=== PATIENT | female | born 1980 | race Caucasian/White ===

== ENCOUNTER 2022-09-04 15:45 | Outpatient (REF) | payer OTHER, MEDICAID, SELFPAY ==
--- NOTE | ~2022-09-04 | XR_ITS ---
EXAMINATION: XR SHOULDER, RIGHT CLINICAL INFORMATION: Reason for Exam M25.519 - Pain in unspecified shoulder COMPARISON: None TECHNIQUE: Three views of the shoulder. FINDINGS: No acute fracture or dislocation. Surgical anchors in the right humeral head. Mild degenerative changes of the glenohumeral joint with minimal degenerative spurring. Postsurgical changes of distal clavicular resection. Soft tissues are unremarkable. XR/XR shoulder RT min 2V IMPRESSION: 1. Mild degenerative changes of the glenohumeral joint. 2. Postsurgical changes of distal clavicular resection with surgical anchors in the right humeral head.
== END 2022-09-04 15:46 | disposition home or self-care (01) ==
LOC: HO.HOSX 15:45
PROVIDERS: Visit Provider Physician Assistant
DX: M25.511 Pain in right shoulder (principal)
CPT/HCPCS: 73030

== ENCOUNTER → 2022-09-05 07:49 | Outpatient (BNVA) | payer OTHER, MEDICAID, SELFPAY | PROVIDERS: PCP Family Medicine; Visit Provider Physician Assistant | DX: M25.519 Pain in unspecified shoulder (principal) ==

== ENCOUNTER 2022-10-21 09:50 | Outpatient (AMB) | payer OTHER, MEDICAID, SELFPAY ==
--- NOTE | 2022-10-21 10:00 | A.OFFVIS_ITS ---
Intake Vital Signs 10/21/22 10:07 Height 5 ft 2 in Weight 160 lb BMI 29.3 Intake Visit Reasons: Pre-Op RT SHLD , [email or web address] 10/06/22DR Allergies cephalexin [From Keflex] Allergy (Intermediate, Verified 10/21/22 10:04) Hives Penicillins Allergy (Intermediate, Verified 10/21/22 10:04) Hives Medication List - Last Reconciled 10/21/22 by Jacques Garcia MD albuterol sulfate 90 mcg/actuation 0 mcg inhalation atorvastatin 40 mg PO DAILY estradiol 1 mg PO DAILY norethindrone (contraceptive) 0.35 mg PO DAILY oxycodone 5 - 10 mg (1 - 2 x 5 mg) PO Q4H PRN oxycodone-acetaminophen 5-325 mg (Percocet) 1 tab PO .QD 12 days sertraline 0 mg PO HPI Pre-Op RT SHLD , [email or web address].[email or web address] 10/06/22DR HPI Details Ms. Meier presents with complaints of progressively worsening right shoulder pain and stiffness. She describes her pain as sharp and severe in nature, 01/06. Her pain has gotten worse over the last year in spite of continued non operative treatments. She has also undergone right shoulder s urgery in the past. She got temporary relief from that procedure. She denies any fevers or chills. She has done physical therapy for 12 weeks over the last 6 months which aggravated her pain. She has also tried Tylenol and anti- inflammatory medicines as well as oxycodone which gave her minimal relief. She has had multiple injections. The most recent injection gave her only temporary relief. The patient has difficulty lifting her right hand above shoulder height. [facility] Medical History History of high cholesterol Social History Alcohol intake: former Patient Tobacco Use Status: Former Tobacco user Current occupational status: unemployed Current occupation: right hand dominant Physical Exam Vital Signs: BMI result Body Mass Index 29.3 Const Other: Well-nourished well-developed very friendly female awake alert and oriented x3 in no acute distress Lungs clear to auscultation bilaterally with symmetric expansion Cardiovascular exam regular rate and rhythm Abdominal exam is soft nontender nondistended Extrem Other: Bilateral upper extremity examination shows good capillary refill, no skin lesions noted, normal sensation light touch Right shoulder examination shows decreased active and passive range of motion when compared to her left shoulder, 4+ out of 5 strength with supraspinatus testing, positive impingement signs, tenderness over her acromioclavicular joint, no instability Results Reviewed Results Reviewed: MRI of the patient's right shoulder show severe acromioclavicular joint narrowing, type 2 acromion, signal change within the supraspinatus tendon most likely due to adhesive capsulitis versus a small rotator cuff tear Assessment & Plan Assessment & Plan (1) Impingement of right shoulder: Code(s): M25.811 - Other specified joint disorders, right shoulder Plan Ms. Meier presents with progressively worsening right shoulder pain due to impingement syndrome, acromioclavicular joint arthritis, possible adhesive capsulitis as well as possible rotator cuff tearing. I had a lengthy discussion with the patient regarding the treatment options. At this point she has failed continued non operative treatments. The risks and benefits of right shoulder surgery were discussed at length with the patient. The patient wishes to proceed with surgery. Surgery will most likely involve a right shoulder diagnostic arthroscopy with distal clavicle excision, acromioplasty, possible anterior capsular with manipulation under anesthesia as well as possible rotator cuff repair should a full-thickness tear be found at the time of her surgery. Because the patient's symptoms are severe and intractable we will schedule her surgery for as soon as possible. Coronavirus precautions will be taken. The patient was given a prescription for oxycodone at her preoperative appointment. I will see her back 2 weeks following her surgery for her 1st postoperative appointment. The patient will follow-up as instructed. Feel free to call me at any time should questions regarding her orthopedic management arise. I spent 25 minutes in reviewing the patient's records and imaging studies, seeing the patient and documenting in the medical record. Medications: New oxycodone Partial Fill upon patient request. 5 - 10 mg (1 - 2 x 5 mg) PO Q4H PRN 50 caps 0RF pain Coding Level of Care Code Est Pt Level 2 (46334) Diagnoses Impingement of right shoulder M25.811
[2022-10-21 10:07] VITALS: BMI 29.3
== END 2022-10-21 15:01 | disposition home or self-care (01) ==
PROVIDERS: PCP Family Medicine; Visit Provider Orthopaedic Surgery
DX: M25.811 Other specified joint disorders, right shoulder (principal)
CPT/HCPCS: 99212

== ENCOUNTER → 2022-10-21 09:50 | Outpatient (BNVA) | payer OTHER, MEDICAID, SELFPAY | PROVIDERS: PCP Family Medicine; Visit Provider Orthopaedic Surgery ==

== ENCOUNTER 2022-10-24 05:46 | Day surgery (SDC) | payer OTHER, MEDICAID, SELFPAY ==
[2022-10-21 14:16] VITALS: BMI 28.3
--- NOTE | 2022-10-23 11:01 | HO.ANESPROP2 ---
Documented by User: Yani Garduno NP 10/23/22 11:02 HPI - Anesthesia Eval Consult details Narrative: 42yo F for Right Shoulder Arthroscopy with distal clavicle excision, with acromioplasty ,poss rotator cuff repair, PRN opioids PMFSH Active Problems Active Problems: All Active Problems (Updated 10/21/22 @ 14:14 by Cindy Nguyen RN) Right rotator cuff tear (Acute) Impingement of right shoulder (Acute) Past Medical History Medical History Anxiety Asthma Depression GERD (gastroesophageal reflux disease) History of high cholesterol Smoker Surgical History Surgical History (Updated 10/21/22 @ 14:14 by Cindy Nguyen, RN) History of shoulder surgery Social History Social History (Updated 10/21/22 @ 14:16 by Cindy Nguyen RN) Are you a primary disabilities caregiver to a significant other at home: No Do you presently have visiting nurse or other home services: No Alcohol intake: former Patient Tobacco Use Status: Current everyday Tobacco user Tobacco use type: Cigarette Cigarettes Per Day: 5 Years Smoked: 15 Use of substances other than those prescribed or required for medical reasons: No Have you been hit, kicked, punched, or otherwise hurt by someone within the past year? If so, by whom?: No Are you DNR?: No Advance Directives: No Advance Directives Information Provided: Yes Advance Directives on File: No Recently lost weight without trying: No Patient : No FDLMP: irregular : No Poor oral hygiene: No Current occupational status: unemployed Current occupation: right hand dominant Meds Allergies Allergy/AdvReac Type Severity Reaction Status Date / Time cephalexin [From Keflex] Allergy Intermediate Hives Verified 10/21/22 10:04 Penicillins Allergy Intermediate Hives Verified 10/21/22 10:04 Home Medications Medication Instructions Recorded Confirmed Last Taken Type albuterol sulfate 90 mcg/actuation 2 puff inhalation Q4-6H PRN 09/05/22 10/21/22 Unknown History aerosol inhaler Shortness Of Breath Or Wheezing atorvastatin 40 mg tablet 40 mg PO BEDTIME 09/05/22 10/21/22 Unknown History norethindrone (contraceptive) 0.35 0.35 mg PO BEDTIME 09/05/22 10/21/22 Unknown History mg tablet estradiol 1 mg tablet 1 mg PO BEDTIME 10/21/22 10/21/22 Unknown History omeprazole 10 mg capsule,delayed 10 mg PO DAILY PRN Gastric Reflux 10/21/22 10/21/22 Unknown History release oxycodone 5 mg tablet 5 mg PO DAILY PRN pain 10/21/22 10/21/22 Unknown History sertraline 50 mg tablet 75 mg PO BEDTIME 10/21/22 10/21/22 Unknown History Exam Exam Date and Time: October 23, 2022 1101 Height,Weight and Vital Signs: Height 5 ft 2 in Weight 70.307 kg Assessment and Plan Assessment Anesthesia Assessment: Chart Reviewed Documented by User: Jimbo Redd MD 10/24/22 07:17 [facility] Past Medical History Medical History Anxiety Asthma Depression GERD (gastroesophageal reflux disease) History of high cholesterol Smoker Family History Family history of problems with anesthesia: No Surgical History Surgical History (Updated 10/21/22 @ 14:14 by Cindy Nguyen RN) History of shoulder surgery History of Problems with Anesthesia: No Social History Social History (Updated 10/21/22 @ 14:16 by Cindy Nguyen RN) Are you a primary disabilities caregiver to a significant other at home: No Do you presently have visiting nurse or other home services: No Alcohol intake: former Patient Tobacco Use Status: Current everyday Tobacco user Tobacco use type: Cigarette Cigarettes Per Day: 5 Years Smoked: 15 Use of substances other than those prescribed or required for medical reasons: No Have you been hit, kicked, punched, or otherwise hurt by someone within the past year? If so, by whom?: No Are you DNR?: No Advance Directives: No Advance Directives Information Provided: Yes Advance Directives on File: No Recently lost weight without trying: No Patient : No FDLMP: irregular : No Poor oral hygiene: No Current occupational status: unemployed Current occupation: right hand dominant Meds Allergies Allergy/AdvReac Type Severity Reaction Status Date / Time cephalexin [From Keflex] Allergy Intermediate Hives Verified 10/21/22 10:04 Penicillins Allergy Intermediate Hives Verified 10/21/22 10:04 Home Medications Medication Instructions Recorded Confirmed Last Taken Type albuterol sulfate 90 mcg/actuation 2 puff inhalation Q4-6H PRN 09/05/22 10/21/22 Unknown History aerosol inhaler Shortness Of Breath Or Wheezing atorvastatin 40 mg tablet 40 mg PO BEDTIME 09/05/22 10/21/22 Unknown History norethindrone (contraceptive) 0.35 0.35 mg PO BEDTIME 09/05/22 10/21/22 Unknown History mg tablet estradiol 1 mg tablet 1 mg PO BEDTIME 10/21/22 10/21/22 Unknown History omeprazole 10 mg capsule,delayed 10 mg PO DAILY PRN Gastric Reflux 10/21/22 10/21/22 Unknown History release oxycodone 5 mg tablet 5 mg PO DAILY PRN pain 10/21/22 10/21/22 Unknown History sertraline 50 mg tablet 75 mg PO BEDTIME 10/21/22 10/21/22 Unknown History Exam Airway Mallampati Class: II TM Dist: >3cm Neck ROM: Limited Heart: rrr Lungs: cta Assessment and Plan Assessment Anesthesia Assessment: Anesthesia Plan Discussed Final Anesthetic Review Family History of Problems with Anesthesia: No History of Problems with Anesthesia: No NPO: Yes ASA Class: II Final Preanesthetic Review: No Changes in Pt Med Stat, Meds/Allgs Chart Reviewed, Consent Obtained/Reviewed and Anes Risks/Benef Reviewed Patient Risk: Intermediate Procedure Risk: Intermediate Anesthetic Plan Anesthetic Plan: GA, Regional Block and Agree w/ Assess. and Plan Disposition: Standard PACU
[2022-10-24 06:15] VITALS: BP 98/69; PULSE 74; RESP 18; TEMP 36.2; O2SAT 98; BMI 29.3
[2022-10-24 06:18] LABS: UPreg QC Valid YES; Urine Pregnancy NEGATIVE (NEGATIVE)
[2022-10-24] MEDS: Lactated Ringers 1,000 ML 100 ML IVCONT (06:34)
--- NOTE | 2022-10-24 08:57 | PM.OP ---
Brief Operative Note Date of Service: 10/24/22 Pre-op diagnosis: Right shoulder impingement syndrome, acromioclavicular joint arthritis and adhesive capsulitis Post-op diagnosis: same Procedure: Right shoulder diagnostic arthroscopy with arthroscopic distal clavicle excision, arthroscopic acromioplasty, arthroscopic anterior capsular release and manipulation under anesthesia Implants: none Surgeon: Jacques Garcia MD Anesthesia: GETA and regional Was an Recreational Therapy Technician used for this Procedure?: No Estimated blood loss (mL): 10 Pathology: none sent Condition: stable Disposition: PACU
--- NOTE | 2022-10-24 08:59 | W.PM.OPN ---
Operative Note Operative Note Date of Service: 10/24/22 Narrative: After the patient was identified as Skylar Meier and her right shoulder was initialed by myself the patient was brought to the holding area where a right shoulder interscalene regional block was performed by the anesthesiologist in routine fashion. The patient was then brought to the operating room where general anesthesia was induced by the anesthesiologist in routine fashion. Because of the patient's allergy to penicillin she was given 900 mg of IV clindamycin preoperatively for infection prophylaxis. The patient was gently positioned in the beach chair position with all bony prominences well padded. The patient's right shoulder region and upper extremity were prepped and draped in sterile fashion. A formal time-out was completed. A #11 scalpel blade was used to make a posterior portal 2 cm inferior and 1 cm medial to the posterolateral corner of the acromion. Blunt trocar technique was used to enter the glenohumeral joint in routine fashion. An anterior portal was made just lateral to the coracoid process after proper positioning was confirmed using a spinal needle. Diagnostic arthroscopy showed diffuse grades 1 and 2 degenerative changes of the glenoid and humeral head articular surfaces. There was no evidence of recurrence rotator cuff tearing. The biceps tendon was not identified. There was inflammation of the anterior joint capsule consistent with adhesive capsulitis. The ArthroCare Wand was then used to perform an anterior capsular release between the inferior border of the bicipital groove and the superior border of the subscapularis tendon. The arthroscope was then placed from the posterior portal into the subacromial space. A lateral portal was made 2 fingerbreadths lateral to the anterior lateral corner of the acromion. The ArthroCare Wand was used to ablate soft tissues along the undersurface of the acromion as well as to excise the coracoacromial ligament. There was a sharp spur along the undersurface of the acromion which was removed using the hooded bur. The arthroscope was then placed into the lateral portal and the acromioplasty was completed with the bur in the posterior portal using the posterior aspect of the acromion as a cutting block. The ArthroCare Wand was then brought in through the anterior portal and was used to ablate soft tissues along the acromioclavicular joint and distal clavicle. The posterior and superior ligamentous structures were left intact. A distal clavicle excision of 4 mm was performed using the fluted bur. Any remaining bursal tissue was removed using the arthroscopic shaver. The subacromial space was irrigated and then drained. All arthroscopic instruments were removed. A gentle manipulation under anesthesia was then performed. Full passive range of motion was easily obtained. The 3 portals were closed with 3-0 nylon interrupted suture. The subacromial space was injected with Marcaine. Dry sterile dressing was placed over all incisions. The patient's right upper extremity was placed into a sling. The patient was awoken and extubated in the operating room. The patient was transferred to the recovery room in stable condition.
[2022-10-24 09:06] VITALS: BP 110/57; PULSE 69; RESP 14; TEMP 36.8; O2SAT 100
[2022-10-24 09:11] VITALS: BP 109/53; PULSE 65; RESP 14; O2SAT 100
[2022-10-24 09:16] VITALS: BP 103/55; PULSE 63; RESP 14; O2SAT 98
[2022-10-24 09:21] VITALS: BP 116/67; PULSE 65; RESP 14; O2SAT 98
[2022-10-24 09:35] VITALS: BP 118/63; PULSE 69; RESP 16; TEMP 36.1; O2SAT 98
== END 2022-10-24 10:45 | disposition home or self-care (01) ==
PROVIDERS: Nurse Practitioner; PCP Family Medicine; Visit Provider Orthopaedic Surgery
PROC: (CPT 29805; principal; 2022-10-24 07:30)
DX: M75.41 Impingement syndrome of right shoulder (principal); M19.011 Primary osteoarthritis, right shoulder; M75.01 Adhesive capsulitis of right shoulder; M25.811 Other specified joint disorders, right shoulder; E78.00 Pure hypercholesterolemia, unspecified; Z79.899 Other long term (current) drug therapy; Z88.0 Allergy status to penicillin; Z88.1 Allergy status to other antibiotic agents; Z98.890 Other specified postprocedural states; Z87.891 Personal history of nicotine dependence
CPT/HCPCS: 29824; 29826; 29825; 81025; J0131; J0171; J1100; J1885; J2370; J2371; J2405; J2795

== ENCOUNTER → 2022-10-24 05:46 | Outpatient (BNV) | payer OTHER, MEDICAID, SELFPAY | PROVIDERS: PCP Family Medicine; Visit Provider Orthopaedic Surgery | DX: M75.41 Impingement syndrome of right shoulder (principal); M75.31 Calcific tendinitis of right shoulder; M19.011 Primary osteoarthritis, right shoulder | CPT/HCPCS: 29824; 29825; 29826 ==

== ENCOUNTER 2022-12-16 07:53 | Outpatient (AMB) | payer OTHER, MEDICAID, SELFPAY ==
--- NOTE | 2022-12-16 08:00 | A.OFFVIS_ITS ---
Intake Intake Visit Reasons: PO-Rt Shoulder Scope 10/24/22 Intake Note: Skylar a 42 year old female who presents today for a post operative right shoulder , 10/06/22 Patient reports pain and tightness in shoulder. Continues to do at home exercises. She denies any fevers or chills. She denies any weakness. Allergies cephalexin [From Keflex] Allergy (Intermediate, Verified 12/16/22 08:09) Hives Penicillins Allergy (Intermediate, Verified 12/16/22 08:09) Hives Medication List - Last Reconciled 12/16/22 by Jacques Garcia MD albuterol sulfate 90 mcg/actuation 2 puffs inhalation Q4-6H PRN atorvastatin 40 mg PO BEDTIME estradiol 1 mg PO BEDTIME norethindrone (contraceptive) 0.35 mg PO BEDTIME omeprazole 10 mg PO DAILY PRN oxycodone 5 mg PO DAILY PRN oxycodone 5 - 10 mg (1 - 2 x 5 mg) PO Q4H PRN oxycodone-acetaminophen 5-325 mg (Percocet) 1 tab PO .QD 12 days sertraline 75 mg PO BEDTIME PFSH Medical History (Updated 11/11/22 @ 11:32 by Jacques Garcia MD) Smoker GERD (gastroesophageal reflux disease) Depression Anxiety Asthma History of high cholesterol Surgical History History of shoulder surgery Social History (Updated 10/21/22 @ 14:16 by Cindy Nguyen RN) Are you a primary career resource technician to a significant other at home: No Do you presently have visiting nurse or other home services: No Alcohol intake: former Patient Tobacco Use Status: Current everyday Tobacco user Tobacco use type: Cigarette Cigarettes Per Day: 5 Years Smoked: 15 Current occupational status: unemployed Current occupation: right hand dominant Physical Exam Extrem Other: The right shoulder examination shows that the surgical incisions are well healed, no erythema, slightly decreased range of motion when compared to her left shoulder, no crepitus with range of motion, 5/5 strength with supraspinatus testing, mild tenderness over Results Reviewed Results Reviewed: X-rays of the patient's right shoulder show bony changes consistent with distal clavicle excision and acromioplasty, 3 suture anchors within the proximal humerus with no signs of loosening Assessment & Plan Assessment & Plan (1) Right shoulder pain: Code(s): M25.511 - Pain in right shoulder Plan: Ms. Meier continues to do well after undergoing right shoulder arthroscopic surgery on 10/24/2022. She will continue with her home stretching program. The do's and don'ts of lifting were discussed at length with the patient. I did refill her prescription for oxycodone. She will contact me prior to her follow- up appointment in 3 months should any questions or concerns arise. Feel free to call me at any time should questions regarding her orthopedic management arise. Orders: Orders XR shoulder RT min 2V Today M25.511 - Pain in right shoulder Medications: New oxycodone Partial Fill upon patient request. 5 mg PO Q12H PRN 30 tabs 0RF pain Coding Level of Care Code Global (68161) Diagnoses Right shoulder pain M25.511
== END 2022-12-16 08:23 | disposition home or self-care (01) ==
PROVIDERS: PCP Family Medicine; Visit Provider Orthopaedic Surgery
DX: M25.511 Pain in right shoulder (principal)
CPT/HCPCS: 99024

== ENCOUNTER 2022-12-16 10:58 | Outpatient (REF) | payer OTHER, MEDICAID, SELFPAY ==
--- NOTE | ~2022-12-16 | XR_ITS ---
EXAMINATION: XR SHOULDER, RIGHT CLINICAL INFORMATION: Pain in right shoulder COMPARISON: 09/05/2022 TECHNIQUE: Two views of the right shoulder. FINDINGS: Redemonstration of surgical anchors in the right humeral head. Mild degenerative changes in the glenohumeral joint with hypertrophic change. Glenohumeral alignment maintained. Redemonstration of widened acromioclavicular interval, possibly related to prior surgery. XR/XR shoulder RT min 2V IMPRESSION: Postsurgical changes.
== END 2022-12-16 10:59 | disposition home or self-care (01) ==
LOC: HO.HOSX 10:58
PROVIDERS: Visit Provider Orthopaedic Surgery
DX: M25.511 Pain in right shoulder (principal)
CPT/HCPCS: 73030

== ENCOUNTER 2023-03-17 08:29 | Outpatient (AMB) | payer OTHER, MEDICAID, SELFPAY ==
--- NOTE | 2023-03-17 08:36 | MHC.OFFVIS ---
Intake Intake Visit Reasons: OV-Rt Shoulder Scope 10/24/22 Intake Note: Skylar a 42 year old female presents today for a follow up s/p right shoulder , 10/24/22 . Patient reports mild to moderate intermittent discomfort in her right shoulder. She denies any fevers or chills. She continues with her home stretching program. Allergies cephalexin [From Keflex] Allergy (Intermediate, Verified 03/17/23 08:41) Hives Penicillins Allergy (Intermediate, Verified 03/17/23 08:41) Hives Medication List - Last Reconciled 03/17/23 by Jacquse Garcia MD albuterol sulfate 90 mcg/actuation 2 puffs inhalation Q4-6H PRN atorvastatin 40 mg PO BEDTIME estradiol 1 mg PO BEDTIME norethindrone (contraceptive) 0.35 mg PO BEDTIME omeprazole 10 mg PO DAILY PRN oxycodone 5 mg PO DAILY PRN oxycodone 5 - 10 mg (1 - 2 x 5 mg) PO Q4H PRN oxycodone 5 mg PO Q12H PRN oxycodone-acetaminophen 5-325 mg (Percocet) 1 tab PO .QD 12 days sertraline 75 mg PO BEDTIME PFSH Medical History (Updated 11/11/22 @ 11:32 by Jacques Garcia MD) Smoker GERD (gastroesophageal reflux disease) Depression Anxiety Asthma History of high cholesterol Surgical History History of shoulder surgery Social History Are you a primary cattle care worker to a significant other at home: No Do you presently have visiting nurse or other home services: No Alcohol intake: former Patient Tobacco Use Status: Current everyday Tobacco user Tobacco use type: Cigarette Cigarettes Per Day: 5 Years Smoked: 15 Current occupational status: unemployed Current occupation: right hand dominant Physical Exam Const Other: Well-nourished well-developed very friendly female awake alert and oriented x3 in no acute distress Extrem Other: Bilateral upper extremity examination shows good capillary refill, no skin lesions noted, normal sensation light touch Right shoulder examination shows that the surgical incisions are well healed, no erythema, almost full range of motion compared to her left shoulder, mild discomfort with resisted forward flexion, minimal discomfort with resisted internal or external rotation Assessment & Plan Assessment & Plan (1) Right shoulder pain: Code(s): M25.511 - Pain in right shoulder Plan Ms. Meier continues to do fairly well after undergoing revision right shoulder surgery on 10/24/2022. She will continue with her home exercise program. The do's and don'ts of lifting were discussed at length with the patient. She will contact me prior to her follow-up appointment in 3 months should any questions or concerns arise. Feel free to call me at any time should questions regarding her orthopedic management arise. I spent 22 minutes in reviewing the patient's records and imaging studies, seeing the patient and documenting in the medical record. Coding Level of Care Code Est Pt Level 2 (35430) Diagnoses Right shoulder pain M25.511
== END 2023-03-17 08:52 | disposition home or self-care (01) ==
PROVIDERS: PCP Family Medicine; Visit Provider Orthopaedic Surgery
DX: M25.511 Pain in right shoulder (principal)
CPT/HCPCS: 99213

== ENCOUNTER → 2023-03-17 08:29 | Outpatient (BNVA) | payer OTHER, MEDICAID, SELFPAY | PROVIDERS: PCP Family Medicine; Visit Provider Orthopaedic Surgery ==